=== PATIENT | female | born 1980 | race Caucasian/White ===

== ENCOUNTER → 2018-02-01 | Outpatient (CLI) | payer OTHER ==
--- NOTE | 2018-02-01 14:32 | RAD ---
DATE: 02/21/2018 EXAM: DIGITAL DIAGNOSTIC BILATERAL, right breast ultrasound HISTORY: Right breast lump COMPARISON: Baseline study This study was interpreted with the benefit of Computerized Aided Detection (CAD). The breast parenchyma is heterogeneously dense, which could reduce sensitivity of mammography. Breast parenchyma level C. FINDINGS: A BB was placed over the area of reported palpable concern laterally in the right breast. No underlying mass is seen. The fibroglandular tissues are symmetric. No suspicious microcalcifications are evident. Right breast ultrasound, 02/01/2018: A targeted ultrasound exam of the right breast was performed centered at the 10:00 location in the area of reported clinical concern. No sonographic abnormality is detected. IMPRESSION: 1. Dense breasts without mammographic evidence of malignancy. 2. The targeted ultrasound exam of the right breast reveals no abnormality. Clinical surveillance is suggested. BI-RADS CATEGORY: 1 NEGATIVE RECOMMENDED FOLLOW-UP: CLIN FOLLOW UP IMAGING CLINICALLY INDICATED PQRS compliance statement: Patient information was entered into a reminder system with a target due date for the next mammogram. Mammography is a sensitive method for finding small breast cancers, but it does not detect them all and is not a substitute for careful clinical examination. A negative mammogram does not negate a clinically suspicious finding and should not result in delay in biopsying a clinically suspicious abnormality. "Our facility is accredited by the [employer] Mammography Program."
== END | disposition home or self-care (01) ==
LOC: MAMMO 13:06
PROVIDERS: ATTEND Nurse Practitioner Family
DX: C50.411 Malignant neoplasm of upper-outer quadrant of right female breast (principal); R92.2 Inconclusive mammogram
CPT/HCPCS: 76641; 77066